=== PATIENT | male | born 1955 | race Native Hawaiian/Other Pacific Islander ===

== ENCOUNTER 2016-11-24 16:27 | Observation (INO) | payer OTHER ==
[2016-11-24 16:28] VITALS: BP 144/75; PULSE 128; RESP 20; TEMP 98; O2SAT 92
--- NOTE | 2016-11-24 19:44 | PD ---
HPI Chief Complaint: Chest Pain Time Seen by Provider: 19:44 Travel History International Travel<30 days: Yes Contact w/Intl Traveler<30days: Yes Name of Country Traveled to: [place] Traveled to known affect area: No History of Present Illness HPI 61-year-old male with history of psoriasis, diabetes, hypertension, arthritis, COPD, presents to the emergency department for evaluation at the instruction of his primary care provider. Patient states he developed a cough yesterday. He went to his primary care provider where his oxygen saturation was low. He had to go back today and his oxygen saturation remained lower and his heart rate was increased. His primary care provider did an EKG and advised that he go to the emergency department. Patient states he did not have a cough until yesterday. It is nonproductive. He felt as though he had a fever this morning. Has a moderate mid chest pain associated with the cough but it does not radiate anywhere. No nausea or vomiting. No focal deficits weakness. Patient states that he was recently on a cruise out of [place] and his care provider was concerned about a possible blood clot in his lung. Patient has no history of blood clots. He has no other symptoms to report. PFSH Past Medical History Cardiovascular Problems: Yes Hypertension: Yes Social History Alcohol Use: Yes Tobacco Use: No Substance Use: No Allergies-Medications (Allergen,Severity, Reaction): Coded Allergies: Aspirin (Verified Allergy, Unknown, rash/itching, 11/24/16) Reported Meds & Prescriptions Reported Meds & Active Scripts Active Reported Enbrel PF Inj (Etanercept) 50 mg/ml Syr 50 Mg SQ Q7D Atorvastatin (Atorvastatin Calcium) 10 Mg Tab 10 Mg PO HS Tradjenta (Linagliptin) 5 Mg Tab 5 Mg PO DAILY Metformin (Metformin HCl) 500 Mg Tab 1,000 Mg PO BIDPC With meals Glimepiride 2 Mg Tab 3 Mg PO DAILY Take with breakfast or first main meal Ventolin Hfa 18 GM Inh (Albuterol Sulfate) 90 Mcg/Act Aer 1 Puff INH Q4H PRN Advair Diskus Inh (Fluticasone-Salmeterol Inh) 250-50 Mcg/Blist Aer 1 Puff INH BID Rinse mouth after use. Vitamin D3 (Cholecalciferol) 5,000 Unit Cap 5,000 Units PO DAILY Review of Systems Except as stated in HPI: all other systems reviewed are Neg Physical Exam Narrative GENERAL: Well-nourished male patient, ambulatory and in no acute distress SKIN: Warm and dry. HEAD: Atraumatic. Normocephalic. EYES: Pupils equal and round. No scleral icterus. No injection or drainage. ENT: No nasal bleeding or discharge. Mucous membranes pink and moist. NECK: Trachea midline. No JVD. CARDIOVASCULAR: Tachycardic rate and rhythm. No murmur appreciated. RESPIRATORY: No accessory muscle use. Clear to auscultation. Breath sounds equal bilaterally. GASTROINTESTINAL: Abdomen soft, non-tender, nondistended. Hepatic and splenic margins not palpable. MUSCULOSKELETAL: No obvious deformities. No clubbing. No cyanosis. No edema. NEUROLOGICAL: Awake and alert. No obvious cranial nerve deficits. Motor grossly within normal limits. Normal speech. PSYCHIATRIC: Appropriate mood and affect; insight and judgment normal. Data Data Last Documented VS Vital Signs Date Time Temp Pulse Resp B/P Pulse Ox O2 Delivery O2 Flow Rate FiO2 11/24/16 23:11 99.4 110 16 130/74 93 Room Air Orders Electrocardiogram (11/24/16 19:43) Basic Metabolic Panel (Bmp) (11/24/16 19:43) B-Type Natriuretic Peptide (11/24/16 19:43) Ckmb (Isoenzyme) Profile (11/24/16 19:43) Complete Blood Count With Diff (11/24/16 19:43) D-Dimer (11/24/16 19:43) Magnesium (Mg) (11/24/16 19:43) Prothrombin Time / Inr (Pt) (11/24/16 19:43) Act Partial Throm Time (Ptt) (11/24/16 19:43) Troponin I (11/24/16 19:43) Lipase (11/24/16 19:43) Chest, Single Ap (11/24/16 19:43) Lactic Acid (11/24/16 22:53) Blood Culture (11/24/16 22:53) Ct Pulmonary Angiogram (11/24/16 ) Ceftriaxone Inj (Rocephin Inj) (11/24/16 23:30) Azithromycin Inj (Zithromax Inj) (11/24/16 23:30) Iohexol 350 Inj (Omnipaque 350 Inj) (11/24/16 23:48) Levofloxacin 500 Mg Premix Inj (Levaquin (11/25/16 00:45) Legionella Igg & Igm Abs (11/25/16 00:35) Legionella Urinary Antigen (11/25/16 00:35) Albuterol Hfa Inh (Proair Hfa Inh) (11/25/16 01:00) Atorvastatin (Lipitor) (11/25/16 21:00) Cholecalciferol (Vitamin D3) (11/25/16 09:00) Admit Order (Ed Use Only) (11/25/16 00:50) Glimepiride (Amaryl) (11/25/16 09:00) Metformin (Glucophage) (11/25/16 09:00) Patient Own Medication (11/25/16 09:00) Patient Own Medication (11/25/16 09:00) Labs Laboratory Tests Test 11/24/16 11/24/16 20:04 23:18 White Blood Count 11.3 TH/MM3 Red Blood Count 4.99 MIL/MM3 Hemoglobin 14.6 GM/DL Hematocrit 40.5 % Mean Corpuscular Volume 81.3 FL Mean Corpuscular Hemoglobin 29.2 PG Mean Corpuscular Hemoglobin 35.9 % Concent Red Cell Distribution Width 14.3 % Platelet Count 197 TH/MM3 Mean Platelet Volume 9.1 FL Neutrophils (%) (Auto) 74.8 % Lymphocytes (%) (Auto) 16.0 % Monocytes (%) (Auto) 7.9 % Eosinophils (%) (Auto) 0.8 % Basophils (%) (Auto) 0.5 % Neutrophils # (Auto) 8.5 TH/MM3 Lymphocytes # (Auto) 1.8 TH/MM3 Monocytes # (Auto) 0.9 TH/MM3 Eosinophils # (Auto) 0.1 TH/MM3 Basophils # (Auto) 0.1 TH/MM3 CBC Comment DIFF FINAL Differential Comment Prothrombin Time 11.0 SEC Prothromb Time International 1.0 RATIO Ratio Activated Partial 29.2 SEC Thromboplast Time D-Dimer Quantitative (PE/DVT) 0.24 MG/L FEU Sodium Level 134 MEQ/L Potassium Level 3.4 MEQ/L Chloride Level 96 MEQ/L Carbon Dioxide Level 27.9 MEQ/L Anion Gap 10 MEQ/L Blood Urea Nitrogen 9 MG/DL Creatinine 0.74 MG/DL Estimat Glomerular Filtration 107 ML/MIN Rate Random Glucose 203 MG/DL Calcium Level 8.7 MG/DL Magnesium Level 1.7 MG/DL Total Creatine Kinase 63 U/L Troponin I LESS THAN 0.02 NG/ML B-Type Natriuretic Peptide 6 PG/ML Lipase 97 U/L Lactic Acid Level 1.2 mmol/L MDM Medical Decision Making Medical Screen Exam Complete: Yes Emergency Medical Condition: Yes Medical Record Reviewed: Yes Differential Diagnosis PE versus pneumonia versus influenza versus ACS versus pleuritic pain versus costochondritis Narrative Course 61-year-old male presents to emergency department for evaluation. Workup was initiated here in triage. Once medical bed becomes available, patient will be transferred and care assumed by that provider. Condition: Stable Marilu Martinez Nov 24, 2016 19:44
[2016-11-24 20:29] LABS: AUTOMATED NEUTROPHIL # 8.5 TH/MM3 (1.8-7.7); BASOPHIL # 0.1 TH/MM3 (0-0.2); BASOPHIL % 0.5 % (0.0-2.0); EOSINOPHIL # 0.1 TH/MM3 (0-0.4); EOSINOPHIL % 0.8 % (0.0-4.0); HEMATOCRIT 40.5 % (39.0-51.0); HEMO FLAGS DIFF FINAL; LYMPHOCYTE # 1.8 TH/MM3 (1.0-4.8); MEAN CELL VOLUME 81.3 FL (80.0-100.0); MEAN CORPUSCULAR HEMOGLOBIN 29.2 PG (27.0-34.0); MEAN CORPUSCULAR HGB CONC 35.9 % (32.0-36.0); MONO % 7.9 % (0.0-8.0); NEUT % 74.8 % (16.0-70.0); PLATELET COUNT 197 TH/MM3 (150-450); RED BLOOD COUNT 4.99 MIL/MM3 (4.50-5.90); RED CELL DISTRIBUTION WIDTH 14.3 % (11.6-17.2); WHITE BLOOD COUNT 11.3 TH/MM3 (4.0-11.0)
[2016-11-24 20:50] LABS: ANION GAP 10 MEQ/L (5-15); BICARBONATE 27.9 MEQ/L (21.0-32.0); BLOOD UREA NITROGEN 9 MG/DL (7-18); CHLORIDE 96 MEQ/L (98-107); GLOMERULAR FILTRATION RATE 107 ML/MIN (>89); MAGNESIUM 1.7 MG/DL (1.5-2.5); POTASSIUM 3.4 MEQ/L (3.5-5.1); SODIUM (NA) 134 MEQ/L (136-145)
[2016-11-24 20:58] LABS: APTT (PATIENT) 29.2 SEC (24.3-30.1)
[2016-11-24 21:07] LABS: CREATINE KINASE 63 U/L (39-308)
--- NOTE | 2016-11-24 21:13 | RADRPT ---
EXAM DATE/TIME: 11/24/2016 20:03 [facility] COMPARISON: No previous studies available for comparison. INDICATIONS : Patient had chest and back pain this morning. Patient's doctor sent him to rule out blood clot in his lung. MEDICAL HISTORY : None. SURGICAL HISTORY : None. ENCOUNTER: Initial ACUITY: 1 day PAIN SCORE: 2/10 LOCATION: chest FINDINGS: Focal parenchymal density is present in the right mid chest may represent focal infiltrate. The chron icity is not certain. Heart and mediastinum are unremarkable for technique. CONCLUSION: Right midlung opacity possible infiltrate and follow up is suggested repeat chest x-ray in [address] appropriate clinical therapy. Viktor Rosen MD on November 24, 2016 at 21:11 Board Certified Radiologist. This report was verified electronically.
--- NOTE | 2016-11-24 22:51 | PD ---
HPI Chief Complaint: Chest Pain Time Seen by Provider: 22:51 Travel History International Travel<30 days: Yes Contact w/Intl Traveler<30days: Yes Name of Country Traveled to: [place] Traveled to known affect area: No History of Present Illness HPI 61-year-old male came to the emergency room for tachycardia, generalized weakness, fever, not feeling well for past 3 days. Patient was in a cruise and just returned home. He went to see his primary care with these symptoms this morning. There was an EKG done at the primary care's office which showed tachycardia. He was concerned about possible PE given the recent trip. Hence he sent the patient to the emergency room to be evaluated. Patient is also complaining of bilateral leg pain. He is denying of any significant chest pain. He has mild cough he said. This morning he was running a fever but he did not take his temperature. He took 2 Tylenols. In triage he was afebrile. His heart rate was 128 bpm. The provider in triage evaluated the patient and ordered blood test. By the time the patient came inside to see me blood test results were back. They were essentially within normal limit except for mild leukocytosis. Chest x-ray was suggestive of a right upper lobe infiltrate. PFSH Past Medical History Narrative Medical List of his past medical, surgical, social and family history is reviewed from the nursing note. Cardiovascular Problems: Yes Hypertension: Yes Social History Alcohol Use: Yes Tobacco Use: No Substance Use: No Allergies-Medications (Allergen,Severity, Reaction): Coded Allergies: Aspirin (Verified Allergy, Unknown, rash/itching, 11/24/16) Comments List of his allergies reviewed from the nursing note. Reported Meds & Prescriptions Reported Meds & Active Scripts Active Levaquin (Levofloxacin) 500 Mg Tab 500 Mg PO DAILY Reported Enbrel PF Inj (Etanercept) 50 mg/ml Syr 50 Mg SQ Q7D Atorvastatin (Atorvastatin Calcium) 10 Mg Tab 10 Mg PO HS Tradjenta (Linagliptin) 5 Mg Tab 5 Mg PO DAILY Metformin (Metformin HCl) 500 Mg Tab 1,000 Mg PO BIDPC With meals Glimepiride 2 Mg Tab 3 Mg PO DAILY Take with breakfast or first main meal Ventolin Hfa 18 GM Inh (Albuterol Sulfate) 90 Mcg/Act Aer 1 Puff INH Q4H PRN Advair Diskus Inh (Fluticasone-Salmeterol Inh) 250-50 Mcg/Blist Aer 1 Puff INH BID Rinse mouth after use. Vitamin D3 (Cholecalciferol) 5,000 Unit Cap 5,000 Units PO DAILY Narrative Medication List of his home medications reviewed from the nursing note. Review of Systems Except as stated in HPI: all other systems reviewed are Neg Physical Exam Narrative GENERAL: Awake, alert, mild distress SKIN: Warm and dry. Vitiligo HEAD: Atraumatic. Normocephalic. EYES: Pupils equal and round. No scleral icterus. No injection or drainage. ENT: No nasal bleeding or discharge. Mucous membranes pink and moist. NECK: Trachea midline. No JVD. CARDIOVASCULAR: Regular rate and rhythm. Tachycardia. No murmur appreciated. RESPIRATORY: No accessory muscle use. Slightly decreased breath sounds with faint crackles in the right side. Breath sounds equal bilaterally. GASTROINTESTINAL: Abdomen soft, non-tender, nondistended. Hepatic and splenic margins not palpable. MUSCULOSKELETAL: No obvious deformities. No clubbing. No cyanosis. No edema. NEUROLOGICAL: Awake and alert. No obvious cranial nerve deficits. Motor grossly within normal limits. Normal speech. PSYCHIATRIC: Appropriate mood and affect; insight and judgment normal. Data Data Last Documented VS Vital Signs Date Time Temp Pulse Resp B/P Pulse Ox O2 Delivery O2 Flow Rate FiO2 11/24/16 23:11 99.4 110 16 130/74 93 Room Air Orders Electrocardiogram (11/24/16 19:43) Basic Metabolic Panel (Bmp) (11/24/16 19:43) B-Type Natriuretic Peptide (11/24/16 19:43) Ckmb (Isoenzyme) Profile (11/24/16 19:43) Complete Blood Count With Diff (11/24/16 19:43) D-Dimer (11/24/16 19:43) Magnesium (Mg) (11/24/16 19:43) Prothrombin Time / Inr (Pt) (11/24/16 19:43) Act Partial Throm Time (Ptt) (11/24/16 19:43) Troponin I (11/24/16 19:43) Lipase (11/24/16 19:43) Chest, Single Ap (11/24/16 19:43) Lactic Acid (11/24/16 22:53) Blood Culture (11/24/16 22:53) Ct Pulmonary Angiogram (11/24/16 ) Ceftriaxone Inj (Rocephin Inj) (11/24/16 23:30) Azithromycin Inj (Zithromax Inj) (11/24/16 23:30) Iohexol 350 Inj (Omnipaque 350 Inj) (11/24/16 23:48) Levofloxacin 500 Mg Premix Inj (Levaquin (11/25/16 00:45) Legionella Igg & Igm Abs (11/25/16 00:35) Legionella Urinary Antigen (11/25/16 00:35) Albuterol Hfa Inh (Proair Hfa Inh) (11/25/16 01:00) Atorvastatin (Lipitor) (11/25/16 21:00) Cholecalciferol (Vitamin D3) (11/25/16 09:00) Admit Order (Ed Use Only) (11/25/16 00:50) Glimepiride (Amaryl) (11/25/16 09:00) Metformin (Glucophage) (11/25/16 09:00) Patient Own Medication (11/25/16 09:00) Patient Own Medication (11/25/16 09:00) Labs Laboratory Tests Test 11/24/16 11/24/16 20:04 23:18 White Blood Count 11.3 TH/MM3 Red Blood Count 4.99 MIL/MM3 Hemoglobin 14.6 GM/DL Hematocrit 40.5 % Mean Corpuscular Volume 81.3 FL Mean Corpuscular Hemoglobin 29.2 PG Mean Corpuscular Hemoglobin 35.9 % Concent Red Cell Distribution Width 14.3 % Platelet Count 197 TH/MM3 Mean Platelet Volume 9.1 FL Neutrophils (%) (Auto) 74.8 % Lymphocytes (%) (Auto) 16.0 % Monocytes (%) (Auto) 7.9 % Eosinophils (%) (Auto) 0.8 % Basophils (%) (Auto) 0.5 % Neutrophils # (Auto) 8.5 TH/MM3 Lymphocytes # (Auto) 1.8 TH/MM3 Monocytes # (Auto) 0.9 TH/MM3 Eosinophils # (Auto) 0.1 TH/MM3 Basophils # (Auto) 0.1 TH/MM3 CBC Comment DIFF FINAL Differential Comment Prothrombin Time 11.0 SEC Prothromb Time International 1.0 RATIO Ratio Activated Partial 29.2 SEC Thromboplast Time D-Dimer Quantitative (PE/DVT) 0.24 MG/L FEU Sodium Level 134 MEQ/L Potassium Level 3.4 MEQ/L Chloride Level 96 MEQ/L Carbon Dioxide Level 27.9 MEQ/L Anion Gap 10 MEQ/L Blood Urea Nitrogen 9 MG/DL Creatinine 0.74 MG/DL Estimat Glomerular Filtration 107 ML/MIN Rate Random Glucose 203 MG/DL Calcium Level 8.7 MG/DL Magnesium Level 1.7 MG/DL Total Creatine Kinase 63 U/L Troponin I LESS THAN 0.02 NG/ML B-Type Natriuretic Peptide 6 PG/ML Lipase 97 U/L Lactic Acid Level 1.2 mmol/L [facility] Medical Decision Making Medical Screen Exam Complete: Yes Emergency Medical Condition: Yes Medical Record Reviewed: Yes Interpretation(s) Twelve-lead EKG was reviewed by me. Normal sinus rhythm, normal axis, tachycardia, nonspecific ST-T wave changes. Heart rate of 113 bpm. Differential Diagnosis Pneumonia, PE Narrative Course 12:31 AM patient is on Etanercept where there is risk of severe infection due to immunosuppression. Also patient is diabetic and with recent travel history there is a high chance of Legionella infection. I gave him a dose of Rocephin and 1 L of IV fluid bolus. I will order Legionella serology. Patient will also get a dose of Levaquin to cover that. Procedures EKG Prior to Arrival: Yes Physician Communication Physician Communication Dr. Mccallum Diagnosis Primary Impression: Pneumonia Qualified Code: J18.1 - Pneumonia of right upper lobe due to infectious organism Additional Impressions: Tachycardia possible legionnaires pneumonia Admitting Information Admitting Physician Requests: Admit Scripts Levofloxacin (Levaquin)500 Mg Xtx574 Mg PO DAILY #5 TAB Ref 0 Prov:Darek Prasad DO 11/25/16 Condition: Stable Cami Mobley MD Nov 24, 2016 22:51
[2016-11-24 23:11] VITALS: BP 130/74; PULSE 110; RESP 16; TEMP 99.4; O2SAT 93
[2016-11-24] MEDS ORDERED: ADVA250A INH (23:20)
[2016-11-24] MEDS ORDERED: ENBR50IN2 SQ (23:20)
[2016-11-24] MEDS ORDERED: CHOL5000 PO (23:20)
[2016-11-24] MEDS ORDERED: VENTAER INH (23:20)
[2016-11-24] MEDS ORDERED: GLIM2TAB PO (23:20)
[2016-11-24] MEDS ORDERED: TRAD5TAB PO (23:20)
[2016-11-24] MEDS ORDERED: METF500T PO (23:20)
[2016-11-24] MEDS ORDERED: ATOR10TA15 PO (23:20)
[2016-11-24] MEDS ORDERED: cefTRIAXone INJ 1,000 MG in SODIUM CHLORIDE 0.9% INJ 100 ML IV ONE (23:30)
[2016-11-24] MEDS ORDERED: AZITHROMYCIN INJ 500 MG in SODIUM CHLOR 0.9% 250 ML INJ 250 ML IV ONE (23:30)
[2016-11-24] MEDS ORDERED: IOHEXOL 350 MG/ML 10 ML VIAL (for RAD DIAG) IV ONE (23:48)
--- NOTE | 2016-11-25 00:20 | RADRPT ---
EXAM DATE/TIME: 11/24/2016 23:39 [facility] COMPARISON: CHEST SINGLE AP, November 24, 2016, 20:03. INDICATIONS : Slight chest pain that has subsided. IV CONTRAST: 65 cc Omnipaque 350 (iohexol) IV RADIATION DOSE: 14.98 CTDIvol (mGy) MEDICAL HISTORY : Diabetes mellitus type 2. Hypertension. SURGICAL HISTORY : None. ENCOUNTER: Initial ACUITY: 1 day PAIN SCALE: 0/10 LOCATION: chest TECHNIQUE: Volumetric scanning of the chest was performed using a pulmonary embolism protocol MIP images were re constructed. Using automated exposure control and adjustment of the mA and/or kV according to patien t size, radiation dose was kept as low as reasonably achievable to obtain optimal diagnostic quality images. FINDINGS: PULMONARY ARTERIES: No filling defects are seen in the pulmonary arteries through the segmental level. LUNGS: Patchy bilateral infiltrates are present. PLEURAE: There is no pleural thickening or pleural effusion. MEDIASTINUM: Mild prominence of bilateral hilar pa tissue and of central mediastinal lymph nodes, largest date 2.5 cm subcarinal lymph node. Small hiatal hernia. MUSCULOSKELETAL: Within normal limits for patient age. MISCELLANEOUS: Gallstones. CONCLUSION: No evidence of pulmonary embolism. Kashmir Colon MD on November 25, 2016 at 0:13 Board Certified Radiologist. This report was verified electronically.
[2016-11-25] MEDS ORDERED: LEVOFLOXACIN 500 MG PREMIX INJ 100 ML IV ONE (00:45)
[2016-11-25] MEDS ORDERED: SODIUM CHLORIDE 0.9% FLUSH 5 ML FLUSH FLUSH PRN (01:00)
[2016-11-25] MEDS ORDERED: NALOXONE HCL 0.4 MG/ML AMP IV PRN (01:00)
[2016-11-25] MEDS ORDERED: BISACODYL 10 MG SUPP PR PRN (01:00)
[2016-11-25] MEDS ORDERED: ALBUTEROL SULFATE 90 MCG/ACT HFA 8 GM INHALER INH PRN (01:00)
[2016-11-25 01:03] VITALS: BP 136/73; PULSE 102; RESP 16; O2SAT 93
[2016-11-25 02:12] VITALS: BP 134/75; PULSE 105; RESP 16; TEMP 97.6; O2SAT 94
[2016-11-25 07:43] LABS: AUTOMATED NEUTROPHIL # 5.5 TH/MM3 (1.8-7.7); BASOPHIL % 0.5 % (0.0-2.0); EOSINOPHIL # 0.1 TH/MM3 (0-0.4); EOSINOPHIL % 1.6 % (0.0-4.0); HEMATOCRIT 39.1 % (39.0-51.0); HEMO FLAGS DIFF FINAL; LYMPH % 25.4 % (9.0-44.0); LYMPHOCYTE # 2.2 TH/MM3 (1.0-4.8); MEAN CELL VOLUME 80.5 FL (80.0-100.0); MEAN CORPUSCULAR HEMOGLOBIN 28.4 PG (27.0-34.0); MEAN CORPUSCULAR HGB CONC 35.2 % (32.0-36.0); MONO % 8.9 % (0.0-8.0); NEUT % 63.6 % (16.0-70.0); PLATELET COUNT 187 TH/MM3 (150-450); RED BLOOD COUNT 4.86 MIL/MM3 (4.50-5.90); RED CELL DISTRIBUTION WIDTH 14.4 % (11.6-17.2); WHITE BLOOD COUNT 8.7 TH/MM3 (4.0-11.0)
--- NOTE | 2016-11-25 08:51 | HHI.HP ---
HPI Service [facility] Hospitalists Primary Care Physician Navid Hendricks MD Admission Diagnosis pneumonia, immunosuppressed, possible legionnaires pneumonia Chief Complaint: Cough Travel History International Travel<30 Days: Yes Contact w/Intl Traveler <30 Da: Yes Name of Country Traveled to: [place] Traveled to Known Affected Are: No History of Present Illness Mr. Novak is a 61 y/o male with Psoriasis on Enbrel, COPD/Asthma, diabetes, and hyperlipidemia who presented to the ED at [facility] on 11/24/16 from his PCPs office for hypoxia, tachycardia, cough, and low grade fever. The cough and low grade fever started 2 days ago. Patient was on a cruise to [place] and just returned home. He went to see his primary care physician yesterday for his cough and low grade fever. There was an EKG done at the primary care's office which showed tachycardia. Pt was also noted to be hypoxic. There was concern about possible PE given his recent trip and he was sent to the emergency room to be evaluated. CTA was negative for a PE. CXR indicated a right midlung opacity or possible infiltrate and given that the pt is on immunosuppressive therapy for his psoriasis he was admitted for possible pneumonia. Pt was given Rocephin, Azithromycin and Levaquin in the ED. His urine was checked for Legionella Ag and was negative. Blood cultures were drawn and are pending. He has been maintaining O2 saturations on RA.. He denies any significant chest pain. He has mild cough which he says is better today than yesterday. Pt has been afebrile here at the hospital. His heart rate was 128 bpm in the ED and has slowed to the low 100's overnight and this morning. Pt has been ambulating without any SOB. Pt is anxious to go home. Review of Systems Constitutional: COMPLAINS OF: Fever Eyes: DENIES: Vision loss Ears, nose, mouth, throat: DENIES: Tinnitus, Nasal discharge, Hoarseness, Running Nose, Sinus Pain Respiratory: COMPLAINS OF: Cough, Shortness of breath Cardiovascular: DENIES: Chest pain, Palpitations, Lower Extremity Edema Gastrointestinal: DENIES: Abdominal pain, GERD, Nausea Genitourinary: DENIES: Hematuria Musculoskeletal: DENIES: Neck pain Integumentary: DENIES: Rash Neurologic: DENIES: Headache Psychiatric: DENIES: Confusion Past Family Social History Past Medical History COPD/Asthma Diabetes mellitus Hyperlipidemia Psoriasis Vitamin D deficiency Past Surgical History Left hip fracture repair in 2001 Nose surgery Reported Medications Enbrel PF Inj (Etanercept) 50 mg/ml Syr 50 Mg SQ Q7D Atorvastatin (Atorvastatin Calcium) 10 Mg Tab 10 Mg PO HS Tradjenta (Linagliptin) 5 Mg Tab 5 Mg PO DAILY Metformin (Metformin HCl) 500 Mg Tab 1,000 Mg PO BIDPC With meals Glimepiride 2 Mg Tab 3 Mg PO DAILY Take with breakfast or first main meal Ventolin Hfa 18 GM Inh (Albuterol Sulfate) 90 Mcg/Act Aer 1 Puff INH Q4H PRN Advair Diskus Inh (Fluticasone-Salmeterol Inh) 250-50 Mcg/Blist Aer 1 Puff INH BID Rinse mouth after use. Vitamin D3 (Cholecalciferol) 5,000 Unit Cap 5,000 Units PO DAILY Allergies: Coded Allergies: Aspirin (Verified Allergy, Unknown, rash/itching, 11/24/16) Family History Noncontributory Social History Hx of tobacco use, quit over 10 years ago Occasional alcohol use Denies any hx of illicit drug use Physical Exam Vital Signs Vital Signs Date Time Temp Pulse Resp B/P Pulse Ox O2 Delivery O2 Flow Rate FiO2 11/25/16 02:12 97.6 105 16 134/75 94 11/25/16 01:03 102 16 136/73 93 Room Air 11/24/16 23:11 99.4 110 16 130/74 93 Room Air 11/24/16 16:28 98.0 128 20 144/75 92 Room Air Physical Exam GENERAL: This is a well-nourished, well-developed patient, in no apparent distress. HEENT: Atraumatic. Normocephalic. No temporal or scalp tenderness. No scleral icterus. Airway patent. NECK: Trachea midline, supple, nontender. CARDIO: Regular. RESP: CTA bilaterally. Minimal wheeze in the RUL that cleared when he coughed ABD: +BS, soft, non-tender, nondistended. EXT: Extremities without clubbing, cyanosis, or edema. NEURO: Awake and alert. Motor and sensory grossly within normal limits. Normal speech. Laboratory Laboratory Tests Test 11/24/16 11/24/16 11/25/16 20:04 23:18 06:58 White Blood Count 11.3 8.7 Red Blood Count 4.99 4.86 Hemoglobin 14.6 13.8 Hematocrit 40.5 39.1 Mean Corpuscular Volume 81.3 80.5 Mean Corpuscular Hemoglobin 29.2 28.4 Mean Corpuscular Hemoglobin 35.9 35.2 Concent Red Cell Distribution Width 14.3 14.4 Platelet Count 197 187 Mean Platelet Volume 9.1 9.0 Neutrophils (%) (Auto) 74.8 63.6 Lymphocytes (%) (Auto) 16.0 25.4 Monocytes (%) (Auto) 7.9 8.9 Eosinophils (%) (Auto) 0.8 1.6 Basophils (%) (Auto) 0.5 0.5 Neutrophils # (Auto) 8.5 5.5 Lymphocytes # (Auto) 1.8 2.2 Monocytes # (Auto) 0.9 0.8 Eosinophils # (Auto) 0.1 0.1 Basophils # (Auto) 0.1 0.0 CBC Comment DIFF FINAL DIFF FINAL Differential Comment Prothrombin Time 11.0 Prothromb Time International 1.0 Ratio Activated Partial 29.2 Thromboplast Time D-Dimer Quantitative (PE/DVT) 0.24 Sodium Level 134 Potassium Level 3.4 Chloride Level 96 Carbon Dioxide Level 27.9 Anion Gap 10 Blood Urea Nitrogen 9 Creatinine 0.74 Estimat Glomerular Filtration 107 Rate Random Glucose 203 Calcium Level 8.7 Magnesium Level 1.7 Total Creatine Kinase 63 Troponin I LESS THAN 0.02 B-Type Natriuretic Peptide 6 Lipase 97 Lactic Acid Level 1.2 Date/Time Procedure Status Source Growth 11/25/16 00:55 Legionella Antigen - Final Complete Urine Clean Catch PRESUMPTIVE NEGATIVE FOR LEGIONELLA P... 11/24/16 23:18 Aerobic Blood Culture Received Blood Peripheral Pending 11/24/16 23:18 Anaerobic Blood Culture Received Blood Peripheral Pending Result Diagram: 11/25/16 0658 11/24/162003 Imaging Last Impressions Chest X-Ray 11/24/16 1943 Signed Impressions: Service Date/Time: November 20:03 - CONCLUSION: Right midlung opacity possible infiltrate and follow up is suggested repeat chest x-ray in 4 weeks after appropriate clinical therapy. Viktor Rosen MD CT Angiography 11/24/16 0000 Signed Impressions: Service Date/Time: Thursday, November 24, 2016 23:39 - CONCLUSION: No evidence of pulmonary embolism. Kashmir Colon MD Septic Shock Reassessment Heart: Regular rate and rhythm Lungs: Clear Skin: Warm Peripheral Pulses: Bounding Right Radial Bounding Left Radial Bounding Right Popliteal Bounding Left Popliteal Bounding Right Dorsalis Pedis Bounding Left Dorsalis Pedis Bounding Right Posterior Tibial Bounding Left Posterior Tibial Capillary Refill: <2 seconds Assessment and Plan Problem List: (1) Cough Status: Acute Plan: - Pt was sent to the ED for hypoxia, tachycardia, cough, and low grade fever x 2 days. - Patient was on a cruise to [place] and just returned home. - EKG done at the primary care's office which showed tachycardia. Pt was also noted to be hypoxic. There was concern about possible PE given his recent trip and he was sent to the emergency room to be evaluated. CTA was negative for a PE. - CXR indicated a right midlung opacity or possible infiltrate and given that the pt is on immunosuppressive therapy for his psoriasis he was admitted for possible pneumonia. - Pt was given Rocephin, Azithromycin and Levaquin in the ED. - His urine was checked for Legionella Ag and was negative. - Blood cultures were drawn and are pending. - He has been maintaining O2 saturations on RA.. - Pt has been afebrile here at the hospital. - His heart rate was 128 bpm in the ED and has slowed to the low 100's overnight and this morning. - Pt has been ambulating without any SOB. - Pt appears stable for discharge to home with followup early next week with his PCP, Dr. Hendricks. - We will have him continue on Levaquin 500mg po daily x 5 days. - Pts PCP will need to followup on his pending labs and cultures. (2) Tachycardia Status: Acute Plan: - Likely physiological related to his acute respiratory illness. (3) Diabetes mellitus Status: Chronic Plan: - Cont. home meds except his Metformin he is to hold for 3 days post the CTA. - He will resume the Metformin on Monday. (4) Asthma Status: Chronic Plan: - Cont. home meds (5) Psoriasis Status: Chronic Plan: - Pt is on Enbrel as an outpt (6) Hyperlipidemia Status: Chronic Plan: - Cont. home meds Assessment and Plan Patient examined. Assessment and plan formulated with Marie Bowen PA-C. I agree with the above. Problem Qualifiers (1) Diabetes mellitus: Marie Bowen Nov 25, 2016 08:51 Darek Prasad DO Nov 28, 2016 13:50
[2016-11-25] MEDS ORDERED: GLIMEPIRIDE 2 MG TAB PO SCH (09:00)
[2016-11-25] MEDS ORDERED: LINAGLIPTIN 5 MG PO SCH (09:00)
[2016-11-25] MEDS ORDERED: metFORMIN HCL 500 MG TAB PO SCH (09:00)
[2016-11-25] MEDS ORDERED: SODIUM CHLORIDE 0.9% FLUSH 5 ML FLUSH FLUSH SCH (09:00)
[2016-11-25] MEDS ORDERED: CHOLECALCIFEROL (VIT D3) 5000 UNIT CAP PO SCH (09:00)
[2016-11-25] MEDS ORDERED: BUDESONIDE-FORMOTEROL 160/4.5 MCG INHALER INH SCH ×2 (09:00)
[2016-11-25] MEDS ORDERED: ETANERCEPT 50 MG SQ SCH (09:00)
[2016-11-25] MEDS ORDERED: NON-FORMULARY DRUG (Fluticasone-Salmeterol Inh (Advair Diskus Inh) 1 PUFF) INH SCH (09:00)
[2016-11-25] MEDS ORDERED: LEVA500T PO (10:04)
[2016-11-25] MEDS ORDERED: POTASSIUM CHLORIDE 20 MEQ CONTROLLED RELEASE TAB PO ONE (10:30)
[2016-11-25] MEDS ORDERED: ATORVASTATIN 10 MG TAB PO SCH (21:00)
--- NOTE | 2016-11-25 23:18 | EKG ---
Date Performed: 11/24/2016 Time Performed: 20:12:34 PTAGE: 61 years EKG: SINUS TACHYCARDIA ABNORMAL RHYTHM ECG NO PREVIOUS TRACING DOCTOR: Jefry Winn Interpretating Date/Time 11/25/2016 23:14:55
[2016-11-26] MEDS ORDERED: LEVOFLOXACIN 500 MG PREMIX INJ 100 ML IV SCH (01:00)
[2016-11-30 23:52] LABS: LEGIONELLA PNEUMO 1 IGG <1:64 titer (< 1:64); LEGIONELLA PNEUMO 1 IGM <1:64 titer (< 1:64); LEGIONELLA PNEUMO 2 IGG <1:64 titer (< 1:64); LEGIONELLA PNEUMO 2 IGM <1:64 titer (< 1:64); LEGIONELLA PNEUMO 3 IGG <1:64 titer (< 1:64); LEGIONELLA PNEUMO 3 IGM <1:64 titer (< 1:64); LEGIONELLA PNEUMO 4 IGG <1:64 titer (< 1:64); LEGIONELLA PNEUMO 4 IGM <1:64 titer (< 1:64); LEGIONELLA PNEUMO 5 IGG <1:64 titer (< 1:64); LEGIONELLA PNEUMO 5 IGM <1:64 titer (< 1:64); LEGIONELLA PNEUMO 6 IGG <1:64 titer (< 1:64); LEGIONELLA PNEUMO 6 IGM <1:64 titer (< 1:64)
== END 2016-11-25 10:58 | disposition home or self-care (01) ==
LOC: NEPA 16:27 → NEDA 11-25 00:51 → INTOOBSV 11-25 00:51 → NEPFCDU 11-25 02:11
PROVIDERS: ADMIT Hospitalist; ATTEND Hospitalist
DX: J18.9 Pneumonia, unspecified organism (principal); J44.0 Chronic obstructive pulmonary disease with (acute) lower respiratory infection; J45.909 Unspecified asthma, uncomplicated; I10 Essential (primary) hypertension; E11.9 Type 2 diabetes mellitus without complications; E78.5 Hyperlipidemia, unspecified; L40.9 Psoriasis, unspecified; R00.0 Tachycardia, unspecified; R05 Cough
CPT/HCPCS: 71010; 71275; 80048; 82550; 82948; 83605; 83690; 83735; 83880; 84484; 85025; 85379; 85610; 85730; 86713; 87040; 87449; 93005; 96365; 96367; 99285; G0378; J0456; J0696; J1956; J7050; Q9967